=== PATIENT | male | born 1965 | race Caucasian/White ===

== ENCOUNTER 2019-05-30 10:04 | Outpatient (CLI) | payer OTHER ==
[2019-05-30 10:43] LABS: Estimated GFR-MDRD - POC Greater than 90
--- NOTE | 2019-05-30 11:33 | RAD ---
MRI SAFETY WATER SINUS: DATE: 05/30/2019. PROVIDED CLINICAL HISTORY: History of metal in eye since removed. FINDINGS: Single fontal view of the skull/orbits was performed for evaluation of the potential of metallic fore ign body in the region of the orbits. There is no evidence for such. IMPRESSION: As above. POS: OFF
--- NOTE | 2019-05-30 13:10 | MRI ---
MRI Brain W WO Con: 05/30/2019 12:00 AM CLINICAL HISTORY: Epilepsy. COMPARISON: None. FINDINGS: Extra axial spaces: Normal in size and morphology for the patient's age. Acute infarction: None. Ventricular system: Normal in size and morphology for the patient's age. Basal cisterns: Normal. Cerebral parenchyma: Normal. Midline shift: None. Cerebellum: Normal. Brainstem: Normal. Paranasal sinuses:Clear Intraaxial Enhancement: None IMPRESSION:No acute intracranial abnormality.
== END 2019-05-30 10:05 | disposition home or self-care (01) ==
LOC: BICMRI 10:04
PROVIDERS: ATTEND Psychiatry & Neurology Neurology
DX: G40.209 Localization-related (focal) (partial) symptomatic epilepsy and epileptic syndromes with complex partial seizures, not intractable, without status epilepticus (principal)
CPT/HCPCS: 70210; 70553; 82565